=== PATIENT | male | born 1965 | race Caucasian/White ===

== ENCOUNTER 2019-05-07 02:34 | Inpatient (IN) | payer MEDICAID ==
[~2019-05-07] VITALS: Ht 177.8 cm; Wt 95.7 kg
[2019-05-07 02:34] VITALS: BP_SYST 136
--- NOTE | 2019-05-07 02:34 | NUR ---
Pt wheeled to bed 7 for evaluation
--- NOTE | 2019-05-07 02:48 | NUR ---
ER at bedside examining patient.
--- NOTE | 2019-05-07 02:50 | NUR ---
Pt brought in by sister. Pt awake, alert, oriented x4. Pt states that he has had shortness of breath x2 days. pt states that over the past couple of days, he has experienced high heartrate. Pt states that he has been staying in a house where the dryer wasnt working properly, and he suspects he has carbon monoxide poisoning. Pt denies chest pain, nausea, vomiting, diarrhea. Pt vitals stable, resting in ed bed comfortably with sister bedside.
[2019-05-07] MEDS ORDERED: APIX5TAB4 PO (02:54)
[2019-05-07 03:29] LABS: BASOPHILS # (AUTO) 0.1 K/uL (0.0-0.2); BASOPHILS % (AUTO) 1.1 % (0.0-2.0); EOSINOPHILS # (AUTO) 0.2 K/uL (0.0-0.4); EOSINOPHILS % (AUTO) 2.3 % (0.0-4.0); HEMATOCRIT 34.8 % (36-54); HEMOGLOBIN 11.8 g/dL (14.0-18.0); LYMPHOCYTES # (AUTO) 1.2 K/uL (1.0-5.5); LYMPHOCYTES % (AUTO) 15.1 % (20.5-51.5); MEAN CORPUSCULAR HEMOGLOBIN 30 pg (27-31); MEAN CORPUSCULAR HGB CONC 34 % (32-36); MEAN CORPUSCULAR VOLUME 88 fL (79.0-98.0); MONOCYTES # (AUTO) 0.4 K/uL (0.0-1.0); MONOCYTES % (AUTO) 4.7 % (1.7-9.3); NEUTROPHILS # (AUTO) 6.2 K/uL (1.8-7.7); NEUTROPHILS % (AUTO) 76.8 % (40.0-70.0); PLATELET COUNT (AUTO) 410 K/uL (130-430); RED BLOOD CELL COUNT(AUTO) 3.96 MIL/uL (4.2-6.2); RED CELL DISTRIBUTION WIDTH 15.2 % (9.0-15.0); WHITE BLOOD COUNT (AUTO) 8.1 K/uL (4.8-10.8)
--- NOTE | 2019-05-07 03:40 | NUR ---
Pt moved to ED bed 1 closer to nurses station.
[2019-05-07 03:41] LABS: CALCIUM 8.5 mg/dL (8.4-11.0); CREATININE 1.49 mg/dL (0.55-1.30); POTASSIUM 3.7 mmol/L (3.5-5.1)
[2019-05-07] MEDS ORDERED: NACL 0.9% 1,000 ML IV ONE (03:43)
[2019-05-07] MEDS ORDERED: ADENOSINE 6MG/2ML VIAL IVP ONE ×2 (03:45→04:00)
[2019-05-07 03:46] LABS: ALBUMIN 3.1 g/dL (3.4-4.8); TOTAL BILIRUBIN 0.4 mg/dL (0.0-1.0)
[2019-05-07 03:50] LABS: INR 1.1 (0.80-1.20); PROTHROMBIN TIME 11.2 SECS (9.5-12.5)
--- NOTE | 2019-05-07 03:56 | NUR ---
Adenosine 6mg Pushed and Flushed
--- NOTE | 2019-05-07 04:00 | NUR ---
12mg adenosine pushed and flushed
[2019-05-07] MEDS ORDERED: ADENOSINE 6MG/2ML VIAL ONE (04:12)
[2019-05-07] MEDS ORDERED: FUROSEMIDE 20 MG/2 ML VIAL IVP ONE (04:30)
--- NOTE | 2019-05-07 04:30 | NUR ---
Pt resting in ed bed comfortably. No acute distress noted at this time.
[2019-05-07] MEDS ORDERED: HYDROcodone/ACETAMIN 5-325 MG TAB (NORCO/ VICODIN) PO PRN (04:45)
[2019-05-07] MEDS ORDERED: *HEPARIN PER PHARMACY XX PRN (04:45)
[2019-05-07] MEDS ORDERED: ONDANSETRON HCL 4 MG/2 ML VIAL IVP PRN (04:45)
[2019-05-07] MEDS ORDERED: ACETAMINOPHEN 325 MG TABLET PO PRN (04:45)
[2019-05-07] MEDS ORDERED: HEPARIN 25,000 UNITS/D5W 250ML 250 ML IV ONE (04:45)
--- NOTE | 2019-05-07 04:55 | NUR ---
Pt states he is still unable to provide urine sample. Pt refuses straight catheter procedure.
--- NOTE | 2019-05-07 04:55 | NUR ---
Pt states Medications and dosages unknown. Pt states he has been non-compliant with all medications for approx 1-2 weeks.
--- NOTE | 2019-05-07 05:15 | NUR ---
Patient will be admitted to care of . Admitted to Telemetry unit. Will go to room 100A. Belongings list completed. Complete and up to date summary report printed. SBAR report to be given at bedside with opportunity for questions.
--- NOTE | 2019-05-07 05:15 | NUR ---
Transfer to Telemetry via ACLS protocol. Licensed nurse present. IV present no signs or symptoms of infiltration.
--- NOTE | 2019-05-07 05:25 | NUR ---
Admission Note Received patient from ER with diagnosis of afib. Initial Plan of Care discussed-patient verbalized understanding. Oriented to room, call light, pain management and safety.
[2019-05-07 05:29] LABS: BARBITURATE, URINE NEGATIVE (NEG <=200); BENZODIAZEPINE, URINE NEGATIVE (NEG <=150); CANNABINOID, URINE NEGATIVE (NEG <=50); COCAINE, URINE NEGATIVE (NEG <=150); METHAMPHETAMINES SCREEN,URINE POSITIVE (NEG <=500); OPIATE, URINE NEGATIVE (NEG <=100); PHENCYCLIDINE SCREEN,URINE NEGATIVE (NEG <=25); UR TRICYCLIC ANTIDEPRESSANTS NEGATIVE (NEG <=300); URINE AMPHETAMINE POSITIVE (NEG <=500); URINE METHADONE NEGATIVE (NEG <=200); URINE OXYCODONE SCREEN NEGATIVE (NEG <=100); URINE PROPOXYPHENE SCREEN NEGATIVE (NEG <=300)
[2019-05-07 05:37] VITALS: BP_SYST 132
[2019-05-07 05:44] LABS: FREE T4 (FREE THYROXINE) 1.2 ng/dl (0.8-1.5); PHOSPHORUS 3.5 mg/dL (2.7-4.5); THYROID STIMULATING HORMONE 4.01 uIu/mL (0.36-3.74)
--- NOTE | 2019-05-07 06:00 | NUR ---
ADMISSION NOTES ' PATIENT ADMITTED FROM ER FOR AFIB. PATIENT IN BED SLEEPY. DENIES ANY PAIN. BREATHING UNLABORED ON ROOM AIR. PATIENT REFUSED SKIN ASSESSMENT BUT DENIES ANY SKIN WOUNDS/PROBLEMS. PATIENT DOES NOT WANT TO BOTHERED AND WOULD LIKE TO SLEEP. BED IN LOWEST LOCKED POSITION. WITH ALARM ON. CALL LIGHT WITH IN REACH.
--- NOTE | 2019-05-07 06:11 | NUR ---
CONSULTATION PAGED REASON FOR CONSULTATION:A-FIB WAS CONSULT CALLED?Y PERSON WHO WAS NOTIFIED:NIYA CONSULTING PHYSICIAN:UZAIR CHOPRA ALODIZE MACHINE HELPER SPECIALTY:CARDIO ALODIZE MACHINE HELPER PHONE NUMBER:[phone] ORDERING PHYSICIAN:NARAYAN ACOSTA
--- NOTE | 2019-05-07 06:28 | NUR ---
CONSULT PAGED CONSULTING MD: DR. BALTAZAR SPECIALITY: CARDIOLOGY ORDERED BY: DR. SIERRA DIALED: [phone] SPOKE TO: JAMES
--- NOTE | 2019-05-07 06:30 | NUR ---
MD CORRALES PAGED BARBARA ACOSTA AT [phone] SPOKE WITH .
--- NOTE | 2019-05-07 06:34 | NUR ---
HEPARIN SPOKE WITH DR ZAVALA VERIFIED INDICATION OF HEPARIN. PER MD FOR AFIB. MADE AWARE OF ELEVATED HR 160'S ORDERED TO GIVE CARDIZEM 10 MG IVP X 1 DOSE.
[2019-05-07] MEDS ORDERED: DILTIAZEM HCL 25 MG/5 ML VIAL IVP ONE (06:45)
[2019-05-07] MEDS ORDERED: HEPARIN SODIUM,PORCINE 2000 UNITS/0.4 ML BOLUS IVP PRN (07:00)
[2019-05-07] MEDS ORDERED: HEPARIN SODIUM,PORCINE 3000 UNITS/0.6 ML BOLUS IVP PRN (07:00)
[2019-05-07] MEDS ORDERED: HEPARIN SODIUM,PORCINE 5000 UNITS/ML VIAL IV ONE (07:00)
--- NOTE | 2019-05-07 07:30 | NUR ---
Opening Note Received plan of care vis sbar from endorsing nurse. Completed bedside round.
--- NOTE | 2019-05-07 07:37 | NUR ---
CLOSING NOTES PATIENT RESTING IN BED. BREATHING UNLABORED. HR 140'S . NO C/O PAIN. HEPARIN BOLUS GIVEN ORDERED. HEPARIN DRIP ENDORSED TO START BY AM RN. PATIENT NEEDS ATTENDED. BED IN LOWEST LOCKED POSITION. WITH ALARM ON. CALL LIGHT WITH IN REACH.
[2019-05-07] MEDS ORDERED: HEPARIN 25,000 UNITS/D5W 250ML 250 ML IV SCH ×2 (07:45)
[2019-05-07] MEDS ORDERED: APIXABAN 2.5 MG TABLET PO SCH (09:00)
[2019-05-07] MEDS ORDERED: METOPROLOL TARTRATE 50 MG TABLET PO SCH (09:00)
[2019-05-07] MEDS ORDERED: DOCUSATE SODIUM 100 MG CAPSULE PO SCH (09:00)
[2019-05-07] MEDS ORDERED: LOSARTAN POTASSIUM 50 MG TABLET (COZAAR) PO ONE (09:45)
[2019-05-07] MEDS ORDERED: FUROSEMIDE 40 MG TABLET PO ONE (09:45)
[2019-05-07] MEDS ORDERED: CARVEDILOL 12.5 MG TABLET (COREG) PO ONE (09:45)
[2019-05-07] MEDS ORDERED: METOPROLOL TARTRATE 5 MG/5 ML VIAL IVP ONE (11:00)
[2019-05-07 11:30] VITALS: BP_SYST 110
--- NOTE | 2019-05-07 11:43 | NUR ---
Patient decided to go AMA despite efforts to offer the patient to stay. Dr Issa also at beside but neither of us were able to convince the patient to stay. Patient signs AMA and I contacted sister and left message and father who advised to let him go. Arm band removed, removed from tele monitor, and discontinued IV.
[2019-05-07] MEDS ORDERED: CARVEDILOL 12.5 MG TABLET (COREG) PO SCH (21:00)
[2019-05-08] MEDS ORDERED: LOSARTAN POTASSIUM 50 MG TABLET (COZAAR) PO SCH (09:00)
[2019-05-08] MEDS ORDERED: FUROSEMIDE 40 MG TABLET PO SCH (09:00)
== END 2019-05-07 11:43 | disposition left against medical advice (07) | DRG 201 ==
LOC: SED 02:34 → STU 04:35
PROVIDERS: ADMIT Family Medicine; ATTEND Family Medicine
DX: I48.91 Unspecified atrial fibrillation (principal); I27.20 Pulmonary hypertension, unspecified; I42.0 Dilated cardiomyopathy; I08.1 Rheumatic disorders of both mitral and tricuspid valves; I11.0 Hypertensive heart disease with heart failure; I50.9 Heart failure, unspecified; Z53.29 Procedure and treatment not carried out because of patient's decision for other reasons; D64.9 Anemia, unspecified; I49.3 Ventricular premature depolarization; Z79.01 Long term (current) use of anticoagulants; Z87.891 Personal history of nicotine dependence; Z79.899 Other long term (current) drug therapy; Z91.14 Patient's other noncompliance with medication regimen; Z71.89 Other specified counseling; Z88.6 Allergy status to analgesic agent; Z56.0 Unemployment, unspecified
CPT/HCPCS: 36415; 36600; 71045; 80053; 80307; 82803-TC; 83036; 83735-TC; 83880; 84100-TC; 84439; 84443-TC; 84484; 85025; 85379; 85610-TC; 85730-TC; 93005; 93306; 99285; G0378; J0153; J1644; J1940; J3490; J7030

== ENCOUNTER 2019-07-19 04:33 | Emergency (ER) | payer SELFPAY ==
[~2019-07-19] VITALS: Ht 180.3 cm; Wt 90.3 kg
[~2019-07-19 04:33] MED LIST: APIX5TAB4 PO
[2019-07-19 04:45] VITALS: BP_SYST 121
--- NOTE | 2019-07-19 04:45 | NUR ---
Placed in room 8. Placed on pvc monitor, blood pressure machine and pulse oximeter. To gown for exam. Side rails up.
--- NOTE | 2019-07-19 05:05 | NUR ---
ER Dr. Bruno at bedside examining patient.
[2019-07-19] MEDS ORDERED: LORATADINE 10 MG TABLET PO ONE (05:15)
[2019-07-19] MEDS ORDERED: ALBUTEROL SULFATE 0.083% 2.5 MG/3 ML VIAL.NEB INH ONE ×2 (05:15→05:45)
--- NOTE | 2019-07-19 05:28 | NUR ---
Medication was given, pt tolerated well. No adverse reaction, will continue to monitor.
--- NOTE | 2019-07-19 05:32 | NUR ---
ER Dr. Bruno at bedside re-examining patient.
--- NOTE | 2019-07-19 05:39 | NUR ---
RT at bedside administering breathing treatment. Pt tolerated well.
[2019-07-19 06:12] VITALS: BP_SYST 115
--- NOTE | 2019-07-19 06:12 | NUR ---
Patient given written and verbal discharge instructions and verbalizes understanding. ER MD discussed with patient the results and treatment provided. Patient in stable condition. ID arm band removed. Rx of Albuterol given. Patient educated on pain management and to follow up with PMD. Pain Scale 0. Opportunity for questions provided and answered. Medication side effect fact sheet provided.
== END 2019-07-19 06:12 | disposition home or self-care (01) ==
LOC: SED 04:33
DX: J98.01 Acute bronchospasm (principal); R06.02 Shortness of breath; Z88.6 Allergy status to analgesic agent
CPT/HCPCS: 94640; 99284; J7613

== ENCOUNTER 2019-11-20 19:11 | Emergency (ER) | payer SELFPAY ==
[~2019-11-20] VITALS: Ht 180.3 cm; Wt 99.8 kg
[2019-11-20 19:11] VITALS: BP_SYST 102
--- NOTE | 2019-11-20 19:11 | NUR ---
Patient triaged. Waiting for room assignment.
--- NOTE | 2019-11-20 19:11 | NUR ---
Note leonelone in EDM - 11/20/19 at 1930 by GUERO Patient triaged and placed in waiting room. VSS and patient appears in no acute distress at this time. Awaiting available bed, and MD notified of need for MSE.
--- NOTE | 2019-11-20 19:19 | NUR ---
Patient left without being seen.
== END 2019-11-20 19:19 | disposition left against medical advice (07) ==
LOC: SED 19:11
DX: R06.02 Shortness of breath (principal); R07.89 Other chest pain; Z53.21 Procedure and treatment not carried out due to patient leaving prior to being seen by health care provider
CPT/HCPCS: 93005

== ENCOUNTER 2020-05-08 23:29 | Emergency (ER) | payer SELFPAY ==
[~2020-05-08] VITALS: Ht 177.8 cm; Wt 99.8 kg
[2020-05-08 23:35] VITALS: BP_SYST 145
[2020-05-09] MEDS ORDERED: DIPH-TET-PERTUS Vaccine 0.5 ML VIAL (ADACEL) I.M. ONE (00:45)
[2020-05-09] MEDS ORDERED: ceFAZolin SODIUM 1 GM VIAL IM ONE (00:45)
[2020-05-09] MEDS ORDERED: LIDOCAINE 1%, 20 ML MDV 20 ML ONE (01:03)
[2020-05-09 01:14] VITALS: BP_SYST 129
== END 2020-05-09 01:20 | disposition home or self-care (01) ==
LOC: SED 23:29
DX: S91.331A Puncture wound without foreign body, right foot, initial encounter (principal); Z88.6 Allergy status to analgesic agent; W21.31XA Struck by shoe cleats, initial encounter; Y93.89 Activity, other specified; Y92.89 Other specified places as the place of occurrence of the external cause; Y99.8 Other external cause status
CPT/HCPCS: 73620; 90471; 90715; 96372; 99284; J0690; J2001